=== PATIENT | female | born 1970 | race African-American/Black ===

== ENCOUNTER 2018-10-22 08:41 | Emergency (ER) | payer MEDICAID, MEDICARE ==
[~2018-10-22] VITALS: Ht 170.2 cm; Wt 82.1 kg
[~2018-10-22 08:41] MED LIST: AMLO10TA6 PO; ASPI325T17 PO; BUPR150T6 PO; CALC0.25 PO; CLOP75TA PO; ERGO500017 PO; EZET10TA18 PO; FURO-93 PO; GABA-826 PO; INSU100V5 SQ-INSULIN; INSU100V8 SQ; ISOS30TA8 PO; LOSA100T7 PO; LOSA25TA25 PO; LOSA50TA7 PO; METO-99 PO; METO25TA35 PO; NITR0.4T SL; ONDA4TAB13 PO; PANT40TA5 PO; SERT50TA28 PO; SIMV5TAB5 PO; VIT D PO; ZOLP10TA PO
[2018-10-22 09:28] LABS: BASOPHILS # (AUTO) 0.01 x10^3/uL (0-0.1); BASOPHILS % (AUTO) 0 % (0-1); EOSINOPHILS # (AUTO) 0.25 x10^3/uL (0-0.4); EOSINOPHILS % (AUTO) 3 % (1-7); LYMPHOCYTES # (AUTO) 1.09 x10^3/uL (1-3.4); LYMPHOCYTES % (AUTO) 11 % (22-44); MD NO; MEAN CORPUSCULAR HEMOGLOBIN 32.8 pg (27.0-34.8); MEAN CORPUSCULAR HGB CONC 34.3 g/dL (32.4-35.8); MEAN CORPUSCULAR VOLUME 95.6 fL (80-100); MEAN PLATELET VOLUME 8.8 fL (7.4-10.4); MONOCYTES # (AUTO) 0.68 x10^3/uL (0.2-0.8); MONOCYTES % (AUTO) 7 % (2-9); NEUTROPHILS # (AUTO) 7.76 x10^3/uL (1.8-6.8); NEUTROPHILS % (AUTO) 79 % (42-75); PLATELET COUNT 312 x10^3/uL (130-400); RED BLOOD COUNT 3.52 x10^6/uL (3.82-5.3); RED CELL DISTRIBUTION WIDTH 14.9 % (9.6-15.2)
[2018-10-22] MEDS ORDERED: HYDROcodone/APAP 5/325 TABLET ONE (09:30)
[2018-10-22] MEDS ORDERED: HYDROcodone/APAP 5/325 TABLET PO ONE (09:30)
--- NOTE | 2018-10-22 09:49 | NUR ---
MEDS GIVEN PER ERP ORDER FOR "30"/10 L UPPER MOLAR TOOTH PAIN, CP, LOW BACK PAIN, PAIN AND FREQUENCY WITH URINATION. PT STATES RECENT UNPROTECTED SEX AND REPORTS OF INCREASED VAGINAL DISCHARGE/WANTS TO BE TESTED FOR STI. ERP UPDATED ON THIS. PT MOVED TO PELVIC BED, URINE COLLECTED/SENT TO LAB. CALL LIGHT WITHIN REACH. PELVIC SET UP AT BS.
[2018-10-22 10:02] LABS: MICROSCOPIC AUTO
[2018-10-22 10:07] LABS: CULTURE INDICATED? NO
[2018-10-22 10:35] LABS: ALBUMIN 3.6 g/dL (3.4-5.0); ANION GAP 10 mmol/L (5-15); CALCIUM 9.2 mg/dL (8.5-10.1); CHLORIDE 99 mmol/L (98-107)
[2018-10-22 10:38] LABS: TROPONIN I < 0.015 ng/mL (0.000-0.045)
[2018-10-22 11:26] VITALS: BP 212/86
== END 2018-10-22 11:28 | disposition home or self-care (01) ==
LOC: ED 09:08
DX: R07.2 Precordial pain (principal); K02.9 Dental caries, unspecified; K04.7 Periapical abscess without sinus; F12.10 Cannabis abuse, uncomplicated; I25.2 Old myocardial infarction; E11.22 Type 2 diabetes mellitus with diabetic chronic kidney disease; N18.3 Chronic kidney disease, stage 3 (moderate); I10 Essential (primary) hypertension; K21.9 Gastro-esophageal reflux disease without esophagitis; J45.909 Unspecified asthma, uncomplicated; I25.10 Atherosclerotic heart disease of native coronary artery without angina pectoris
CPT/HCPCS: 36415; 71045; 80048; 81001; 82040; 84484; 85025; 93005; 99284

== ENCOUNTER 2018-12-06 23:04 | Inpatient (IN) | payer MEDICARE, MEDICAID ==
[~2018-12-06] VITALS: Ht 162.6 cm; Wt 82.9 kg
[~2018-12-06 23:04] MED LIST changes: -AMLO10TA6 PO; +AMLO10TA8 PO; +LOSA100T14 PO; -LOSA100T7 PO; +LOSA50TA14 PO; -LOSA50TA7 PO; +SIMV5TAB14 PO; -SIMV5TAB5 PO
[2018-12-06] MEDS ORDERED: ACETAMINOPHEN 500 MG TABLET ONE (23:21)
--- NOTE | 2018-12-06 23:28 | NUR ---
APPLIANCE INSTALLER: PT MEDICATED PER EMAR FOR FEVER
[2018-12-06] MEDS ORDERED: SODIUM CHLORIDE FLUSH 10ML SYR IVF ONE (23:30)
[2018-12-06] MEDS ORDERED: MORPHINE SULFATE 4 MG/ML, 1ML IVPush PRN (23:30)
[2018-12-06] MEDS ORDERED: ACETAMINOPHEN 500 MG TABLET PO ONE (23:30)
[2018-12-06] MEDS ORDERED: ONDANSETRON 2MG/ML, 2ML IVPush ONE (23:30)
[2018-12-06] MEDS ORDERED: MORPHINE SULFATE 4 MG/ML, 1ML ONE (23:39)
[2018-12-06 23:45] LABS: RAPID INFLUENZA A Negative (Negative); RAPID INFLUENZA B Negative (Negative)
[2018-12-06 23:46] LABS: BASOPHILS # (AUTO) 0.02 x10^3/uL (0-0.1); BASOPHILS % (AUTO) 0 % (0-1); EOSINOPHILS # (AUTO) 0.24 x10^3/uL (0-0.4); EOSINOPHILS % (AUTO) 3 % (1-7); LYMPHOCYTES # (AUTO) 0.61 x10^3/uL (1-3.4); LYMPHOCYTES % (AUTO) 8 % (22-44); MD NO; MEAN CORPUSCULAR HGB CONC 33.6 g/dL (32.4-35.8); MEAN CORPUSCULAR VOLUME 95.2 fL (80-100); MEAN PLATELET VOLUME 8.5 fL (7.4-10.4); MONOCYTES % (AUTO) 10 % (2-9); NEUTROPHILS # (AUTO) 5.98 x10^3/uL (1.8-6.8); NEUTROPHILS % (AUTO) 78 % (42-75); PLATELET COUNT 251 x10^3/uL (130-400); RED BLOOD COUNT 3.01 x10^6/uL (3.82-5.3); RED CELL DISTRIBUTION WIDTH 14.7 % (9.6-15.2)
[2018-12-06 23:59] LABS: ALANINE AMINOTRANSFERASE 11 U/L (12-78); ALBUMIN 3.7 g/dL (3.4-5.0); ANION GAP 8 mmol/L (5-15); CALCIUM 8.9 mg/dL (8.5-10.1); CHLORIDE 102 mmol/L (98-107); CREATININE 9.34 mg/dL (0.55-1.02)
[2018-12-07] VITALS (8 sets, daily range): BP systolic 135–209; BP diastolic 62–86
[2018-12-07 00:02] LABS: ALKALINE PHOSPHATASE 76 U/L (45-117); BILIRUBIN,TOTAL 0.4 mg/dL (0.2-1.0); TOTAL PROTEIN 7.4 g/dL (6.4-8.2)
--- NOTE | 2018-12-07 00:02 | NUR ---
PT ARRIVES TO ED WITH C/O OF ABD PAIN WITH N/V/D X 3 DAYS. PT DENIES ANY TRUAMA AND NOT MISSING ANY DIALYSIS. PT IS VERY WEAK ON ARRIVAL AND HAS A FEVER. PT CONNECTED TO ALL MONITORS. PTS FISTUAL ON LEFT ARM HAS THRILL AND BRUIT PRESENT. PT RESTING IN BED AND MEDICATED PER EMAR. AWAITING FURTHER ORDERS.
--- NOTE | 2018-12-07 00:05 | NUR ---
REPORT OF PT FROM ANJEL AMIN, AND ASSUMING CARE OF PT. PER ANJEL AMIN, MORPHINE WAS GIVEN BUT NOT CHARTED. ELOISA HOBBS AWARE THAT THIS RN WAS GOING TO CHART MED BY PROXY.
--- NOTE | 2018-12-07 00:07 | NUR ---
REPORT TO OSWALDO HOBBS.
[2018-12-07] MEDS ORDERED: SEVE800T8 PO (00:15)
--- NOTE | 2018-12-07 00:56 | NUR ---
UA COLLECTED VIA STERILE STRAIGHT CATH. SAMPLE SENT TO LAB. REPORT OF PT TO LUNCH RNRENETTA.
[2018-12-07 01:03] LABS: MICROSCOPIC AUTO
[2018-12-07 01:04] LABS: CULTURE INDICATED? NO
--- NOTE | 2018-12-07 01:07 | NUR ---
TASK RN: PT REPORTS IMPROVEMENT IN PAIN, 05/22. BP/SPO2/ECG MONITORING IN PLACE. NSR ON MONITOR. PT UPDATED TO POC (RESULTS/RECHECK) AND DEMONSTRATES UNDERSTANDING.
[2018-12-07] MEDS ORDERED: SODIUM CHLORIDE 0.9% 1,000 ML IV SCH (01:54)
[2018-12-07] MEDS ORDERED: BISACODYL 10 MG SUPP PR PRN (02:00)
[2018-12-07] MEDS ORDERED: morphine SULFATE 10 MG/ML, 1ML IVPush PRN (02:00)
[2018-12-07] MEDS ORDERED: INSULIN GLARGINE 100 UNITS/ML, PEN SQ-INSULIN SCH (02:00)
[2018-12-07] MEDS ORDERED: DOCUSATE 100 MG CAPSULE PO PRN (02:00)
[2018-12-07] MEDS ORDERED: hydrALAzine 20 MG/ML, 1ML IVPush PRN (02:00)
[2018-12-07] MEDS ORDERED: ERGOCALCIFEROL 50,000 UNIT CAPSULE PO SCH ×2 (02:00→02:30)
[2018-12-07] MEDS ORDERED: OXYcodone IR 5MG TABLET PO PRN (02:00)
[2018-12-07] MEDS ORDERED: POLYETHYLENE GLYCOL 17 GM PACKET PO PRN (02:00)
[2018-12-07] MEDS ORDERED: NITROGLYCERIN 0.4 MG BOTTLE (25 TABS) SL PRN (02:00)
[2018-12-07] MEDS ORDERED: ZOLPIDEM 10MG TABLET PO PRN (02:00)
[2018-12-07] MEDS ORDERED: PROMETHAZINE 25 MG/ML, 1ML IM PRN (02:00)
[2018-12-07 02:24] LABS: HEMOGLOBIN A1C 7.7 % (4.2-6.3)
[2018-12-07 02:27] LABS: FREE T4 (FREE THYROXINE) 1.09 ng/dL (0.76-1.46); THYROID STIMULATING HORMONE 0.522 mIU/L (0.358-3.740)
[2018-12-07] MEDS ORDERED: GABA300C10 PO (02:42)
[2018-12-07] MEDS: DOXYCYCLINE 100 MG in DEXTROSE 5% 250 ML IV SCH ×2 (03:09→15:10)
[2018-12-07] MEDS: HEPARIN 5,000 UNITS/ML, 1ML SQ SCH ×3 (03:09→17:20)
[2018-12-07] MEDS: ONDANSETRON 2MG/ML, 2ML IVPush PRN (05:09)
[2018-12-07] MEDS: ACETAMINOPHEN 325 MG TABLET PO PRN ×3 (05:43→21:49)
[2018-12-07] MEDS: LABETALOL 5 MG/ML SYRINGE IVPush PRN (05:43)
[2018-12-07] MEDS: PANTOPROZOLE 40MG TABLET PO SCH (06:20)
[2018-12-07] MEDS: ASPIRIN 81 MG TABLET EC PO SCH (06:20)
[2018-12-07] MEDS ORDERED: IBUPROFEN 200 MG TABLET PO PRN (07:00)
[2018-12-07] MEDS: ISOSORBIDE MONONITRATE ER 30 MG TABLET PO SCH (08:29)
[2018-12-07] MEDS: CLOPIDOGREL 75 MG TABLET PO SCH (08:29)
[2018-12-07] MEDS: SEVELAMER CARBONATE 800MG TAB PO SCH (08:29)
[2018-12-07] MEDS: CALCITRIOL 0.25 MCG CAPSULE PO SCH (08:30)
[2018-12-07] MEDS: SERTRALINE 50MG TABLET PO SCH (08:30)
[2018-12-07] MEDS: NICOTINE 7 MG/24 HR PATCH.TD24 TD SCH (08:30)
[2018-12-07] MEDS: LOSARTAN 50MG TABLET PO SCH ×2 (08:30→21:45)
[2018-12-07] MEDS: AMLODIPINE 10 MG TAB PO SCH (08:30)
[2018-12-07] MEDS ORDERED: GABAPENTIN 100 MG CAPSULE PO SCH (09:00)
[2018-12-07] MEDS: INSULIN LISPRO 100 UNITS/ML, PEN SQ-INSULIN SCH ×4 (09:36→21:00)
[2018-12-07] MEDS: CEFTRIAXONE PMX 1GM/50ML 50 ML IV SCH (11:51)
[2018-12-07] MEDS: INSULIN GLARGINE 100 UNITS/ML, PEN SQ-INSULIN SCH (21:44)
[2018-12-07] MEDS: GABAPENTIN 300 MG CAPSULE PO SCH (21:45)
[2018-12-08] MEDS: HEPARIN 5,000 UNITS/ML, 1ML SQ SCH ×3 (01:26→16:46)
[2018-12-08] MEDS: ONDANSETRON ODT 4 MG PO PRN (05:15)
[2018-12-08] MEDS: ASPIRIN 81 MG TABLET EC PO SCH (05:15)
[2018-12-08] MEDS: PANTOPROZOLE 40MG TABLET PO SCH (05:15)
[2018-12-08 05:39] LABS: BASOPHILS # (AUTO) 0.02 x10^3/uL (0-0.1); BASOPHILS % (AUTO) 0 % (0-1); EOSINOPHILS # (AUTO) 0.19 x10^3/uL (0-0.4); EOSINOPHILS % (AUTO) 3 % (1-7); LYMPHOCYTES # (AUTO) 0.96 x10^3/uL (1-3.4); LYMPHOCYTES % (AUTO) 16 % (22-44); MD NO; MEAN CORPUSCULAR HEMOGLOBIN 32.5 pg (27.0-34.8); MEAN CORPUSCULAR HGB CONC 34.2 g/dL (32.4-35.8); MEAN PLATELET VOLUME 8.9 fL (7.4-10.4); MONOCYTES # (AUTO) 0.79 x10^3/uL (0.2-0.8); MONOCYTES % (AUTO) 13 % (2-9); NEUTROPHILS # (AUTO) 4.05 x10^3/uL (1.8-6.8); NEUTROPHILS % (AUTO) 67 % (42-75); PLATELET COUNT 205 x10^3/uL (130-400); RED BLOOD COUNT 2.78 x10^6/uL (3.82-5.3); RED CELL DISTRIBUTION WIDTH 14.6 % (9.6-15.2)
[2018-12-08 05:56] LABS: CHLORIDE 100 mmol/L (98-107)
[2018-12-08 06:07] LABS: ALANINE AMINOTRANSFERASE 13 U/L (12-78); ALBUMIN 3.3 g/dL (3.4-5.0); ALKALINE PHOSPHATASE 66 U/L (45-117); ANION GAP 8 mmol/L (5-15); BILIRUBIN,TOTAL 0.4 mg/dL (0.2-1.0); CALCIUM 8.3 mg/dL (8.5-10.1); CHOL/HDL RATIO 3.8; CHOLESTEROL, TOTAL 166 mg/dL (140-239); HDL CHOL % 27 % (28-40); HDL CHOLESTEROL (DIRECT) 44 mg/dL (40-60); LDL CHOLESTEROL,CALCULATED 97 mg/dL (54-169); LDL/HDL RATIO 2.2 (0.5-3.0); TOTAL PROTEIN 6.9 g/dL (6.4-8.2); TRIGLYCERIDES 125 mg/dL (50-200); VLDL CHOLESTEROL 25 mg/dL (0-25)
[2018-12-08] MEDS: INSULIN LISPRO 100 UNITS/ML, PEN SQ-INSULIN SCH ×4 (07:00→21:09)
[2018-12-08 07:34] VITALS: BP 137/75
[2018-12-08] MEDS: SEVELAMER CARBONATE 800MG TAB PO SCH (08:18)
[2018-12-08] MEDS: CLOPIDOGREL 75 MG TABLET PO SCH (08:19)
[2018-12-08] MEDS: CALCITRIOL 0.25 MCG CAPSULE PO SCH (08:19)
[2018-12-08] MEDS: ISOSORBIDE MONONITRATE ER 30 MG TABLET PO SCH (08:19)
[2018-12-08] MEDS: SERTRALINE 50MG TABLET PO SCH (08:19)
[2018-12-08] MEDS: AMLODIPINE 10 MG TAB PO SCH (08:19)
[2018-12-08] MEDS: LOSARTAN 50MG TABLET PO SCH ×2 (08:19→21:07)
[2018-12-08] MEDS: NICOTINE 7 MG/24 HR PATCH.TD24 TD SCH (08:20)
[2018-12-08] MEDS: DOXYCYCLINE 100 MG in DEXTROSE 5% 250 ML IV SCH ×2 (11:00→23:44)
[2018-12-08] MEDS ORDERED: ARANESP 100 MCG/ML **ESRD SQ SCH (12:00)
[2018-12-08] MEDS: CEFTRIAXONE PMX 1GM/50ML 50 ML IV SCH (12:40)
[2018-12-08 14:11] VITALS: BP 130/78
[2018-12-08 19:55] VITALS: BP 147/71
[2018-12-08] MEDS: GABAPENTIN 300 MG CAPSULE PO SCH (21:07)
[2018-12-08] MEDS: INSULIN GLARGINE 100 UNITS/ML, PEN SQ-INSULIN SCH (21:10)
[2018-12-09 01:17] VITALS: BP 142/74
[2018-12-09] MEDS: HEPARIN 5,000 UNITS/ML, 1ML SQ SCH ×3 (01:40→16:28)
[2018-12-09] MEDS: PANTOPROZOLE 40MG TABLET PO SCH (05:45)
[2018-12-09] MEDS: ASPIRIN 81 MG TABLET EC PO SCH (05:45)
[2018-12-09 06:22] LABS: BASOPHILS # (AUTO) 0.01 x10^3/uL (0-0.1); BASOPHILS % (AUTO) 0 % (0-1); EOSINOPHILS # (AUTO) 0.16 x10^3/uL (0-0.4); EOSINOPHILS % (AUTO) 4 % (1-7); LYMPHOCYTES # (AUTO) 1.09 x10^3/uL (1-3.4); LYMPHOCYTES % (AUTO) 25 % (22-44); MD NO; MEAN CORPUSCULAR HEMOGLOBIN 32.3 pg (27.0-34.8); MEAN CORPUSCULAR HGB CONC 34.1 g/dL (32.4-35.8); MEAN CORPUSCULAR VOLUME 94.7 fL (80-100); MEAN PLATELET VOLUME 8.6 fL (7.4-10.4); MONOCYTES # (AUTO) 0.63 x10^3/uL (0.2-0.8); MONOCYTES % (AUTO) 14 % (2-9); NEUTROPHILS # (AUTO) 2.55 x10^3/uL (1.8-6.8); NEUTROPHILS % (AUTO) 58 % (42-75); PLATELET COUNT 194 x10^3/uL (130-400); RED BLOOD COUNT 2.98 x10^6/uL (3.82-5.3); RED CELL DISTRIBUTION WIDTH 15.1 % (9.6-15.2)
[2018-12-09 06:26] LABS: ANION GAP 8 mmol/L (5-15); CALCIUM 8.2 mg/dL (8.5-10.1); CHLORIDE 99 mmol/L (98-107); CREATININE 8.17 mg/dL (0.55-1.02)
[2018-12-09] MEDS: INSULIN LISPRO 100 UNITS/ML, PEN SQ-INSULIN SCH ×4 (07:00→21:33)
[2018-12-09 07:16] VITALS: BP 139/72
[2018-12-09] MEDS: SERTRALINE 50MG TABLET PO SCH (09:00)
[2018-12-09] MEDS: NICOTINE 7 MG/24 HR PATCH.TD24 TD SCH (09:00)
[2018-12-09] MEDS: LOSARTAN 50MG TABLET PO SCH ×2 (09:00→21:34)
[2018-12-09] MEDS: CLOPIDOGREL 75 MG TABLET PO SCH (09:00)
[2018-12-09] MEDS: AMLODIPINE 10 MG TAB PO SCH (09:00)
[2018-12-09] MEDS: ISOSORBIDE MONONITRATE ER 30 MG TABLET PO SCH (09:00)
[2018-12-09] MEDS: CALCITRIOL 0.25 MCG CAPSULE PO SCH (09:00)
[2018-12-09] MEDS: SEVELAMER CARBONATE 800MG TAB PO SCH (09:00)
[2018-12-09] MEDS: CEFTRIAXONE PMX 1GM/50ML 50 ML IV SCH (10:00)
[2018-12-09] MEDS: ALBUTEROL/IPRATROPIUM 2.5MG/0.5MG, 3 ML HHN SCH ×2 (13:00→19:00)
[2018-12-09 13:17] VITALS: BP 132/76
[2018-12-09] MEDS: DOXYCYCLINE 100 MG in DEXTROSE 5% 250 ML IV SCH (14:13)
[2018-12-09] MEDS: methylPREDNISolone SOD SUCC 40 MG/ML IV SCH (14:13)
[2018-12-09] MEDS: ONDANSETRON 2MG/ML, 2ML IVPush PRN (16:28)
[2018-12-09 19:08] VITALS: BP 153/74
[2018-12-09] MEDS: ONDANSETRON ODT 4 MG PO PRN (21:34)
[2018-12-09] MEDS: INSULIN GLARGINE 100 UNITS/ML, PEN SQ-INSULIN SCH (21:34)
[2018-12-09] MEDS: GABAPENTIN 300 MG CAPSULE PO SCH (21:48)
[2018-12-10 00:32] VITALS: BP 128/60
[2018-12-10] MEDS: ALBUTEROL/IPRATROPIUM 2.5MG/0.5MG, 3 ML HHN SCH ×2 (01:00→07:00)
[2018-12-10] MEDS: HEPARIN 5,000 UNITS/ML, 1ML SQ SCH ×2 (01:34→08:52)
[2018-12-10] MEDS: methylPREDNISolone SOD SUCC 40 MG/ML IV SCH ×2 (01:34→13:00)
[2018-12-10] MEDS: DOXYCYCLINE 100 MG in DEXTROSE 5% 250 ML IV SCH ×2 (01:34→14:54)
[2018-12-10] MEDS: PANTOPROZOLE 40MG TABLET PO SCH (06:09)
[2018-12-10] MEDS: ASPIRIN 81 MG TABLET EC PO SCH (06:09)
[2018-12-10 07:28] VITALS: BP 132/64
[2018-12-10] MEDS ORDERED: ALBUTEROL/IPRATROPIUM 2.5MG/0.5MG, 3 ML HHN PRN (08:30)
[2018-12-10] MEDS: INSULIN LISPRO 100 UNITS/ML, PEN SQ-INSULIN SCH ×2 (08:47→11:41)
[2018-12-10] MEDS: SEVELAMER CARBONATE 800MG TAB PO SCH (08:47)
[2018-12-10] MEDS: AMLODIPINE 10 MG TAB PO SCH (08:47)
[2018-12-10] MEDS: CLOPIDOGREL 75 MG TABLET PO SCH (08:47)
[2018-12-10] MEDS: LOSARTAN 50MG TABLET PO SCH (08:47)
[2018-12-10] MEDS: CALCITRIOL 0.25 MCG CAPSULE PO SCH (08:48)
[2018-12-10] MEDS: SERTRALINE 50MG TABLET PO SCH (08:48)
[2018-12-10] MEDS: ISOSORBIDE MONONITRATE ER 30 MG TABLET PO SCH (08:48)
[2018-12-10] MEDS: NICOTINE 7 MG/24 HR PATCH.TD24 TD SCH (08:48)
[2018-12-10] MEDS ORDERED: DOXY100T PO (09:27)
[2018-12-10] MEDS ORDERED: PRED20TA PO (09:27)
[2018-12-10] MEDS ORDERED: GUAI-161 PO (09:27)
[2018-12-10] MEDS ORDERED: CEFD300C37 PO (09:27)
[2018-12-10 10:49] VITALS: BP 180/78
[2018-12-10] MEDS: LABETALOL 5 MG/ML SYRINGE IVPush PRN (10:50)
[2018-12-10] MEDS: CEFTRIAXONE PMX 1GM/50ML 50 ML IV SCH (14:04)
[2018-12-10 16:21] VITALS: BP 147/85
== END 2018-12-10 16:40 | disposition home or self-care (01) | DRG 871 ==
LOC: ED 23:27 → EDIP 12-07 01:26 → 4EST 12-07 02:05 → DCLOUNGE 12-10 16:31
PROVIDERS: ADMIT Internal Medicine; ATTEND Internal Medicine
PROC: 0T9B70Z Drainage of Bladder with Drainage Device, Via Natural or Artificial Opening (ICD-10-PCS; 2018-12-07)
PROC: 5A1D70Z Performance of Urinary Filtration, Intermittent, Less than 6 Hours Per Day (ICD-10-PCS; principal; 2018-12-08)
PROC: 5A1D70Z Performance of Urinary Filtration, Intermittent, Less than 6 Hours Per Day (ICD-10-PCS; 2018-12-10)
DX: A41.9 Sepsis, unspecified organism (principal); J18.9 Pneumonia, unspecified organism; N18.6 End stage renal disease; I12.0 Hypertensive chronic kidney disease with stage 5 chronic kidney disease or end stage renal disease; J44.0 Chronic obstructive pulmonary disease with (acute) lower respiratory infection; J44.1 Chronic obstructive pulmonary disease with (acute) exacerbation; J45.901 Unspecified asthma with (acute) exacerbation; G81.91 Hemiplegia, unspecified affecting right dominant side; R65.10 Systemic inflammatory response syndrome (SIRS) of non-infectious origin without acute organ dysfunction; D63.1 Anemia in chronic kidney disease; J20.9 Acute bronchitis, unspecified; K21.9 Gastro-esophageal reflux disease without esophagitis; E11.22 Type 2 diabetes mellitus with diabetic chronic kidney disease; E66.9 Obesity, unspecified; E78.5 Hyperlipidemia, unspecified; F12.90 Cannabis use, unspecified, uncomplicated; F17.210 Nicotine dependence, cigarettes, uncomplicated; F32.9 Major depressive disorder, single episode, unspecified; I25.10 Atherosclerotic heart disease of native coronary artery without angina pectoris; Z68.31 Body mass index [BMI] 31.0-31.9, adult; I25.2 Old myocardial infarction; Z88.8 Allergy status to other drugs, medicaments and biological substances; Z82.49 Family history of ischemic heart disease and other diseases of the circulatory system; Z95.5 Presence of coronary angioplasty implant and graft; Z99.2 Dependence on renal dialysis; Z99.3 Dependence on wheelchair
CPT/HCPCS: 36415; 71045; 71250; 80048; 80053; 80061; 81001; 82962; 83036; 83605; 83735; 84145; 84439; 84443; 85025; 86705; 86706; 87040; 87070; 87081; 87205; 87340; 87400; 93005; 93306; 94640; 96374; 99285; G0378; J0696; J0882; J1644; J2405; J7060; J7620; Q0162; J1815; J2920